=== PATIENT | male | born 1975 ===

== ENCOUNTER 2017-12-04 13:25 | Emergency (ER) | payer OTHER ==
[~2017-12-04] VITALS: Ht 180.3 cm; Wt 88.9 kg
[~2017-12-04 13:25] MED LIST: CATAFLAM50 MG PO
== END 2017-12-04 19:13 | disposition home or self-care (01) ==
LOC: ER 13:25
DX: M79.642 Pain in left hand (principal); M79.641 Pain in right hand

== ENCOUNTER 2021-01-14 23:03 | Outpatient (CLI) | payer OTHER | END 2021-01-14 23:55 | disposition home or self-care (01) | LOC: LAB 23:03 | DX: Z20.818 Contact with and (suspected) exposure to other bacterial communicable diseases (principal); Z20.828 Contact with and (suspected) exposure to other viral communicable diseases ==